=== PATIENT | male | born 1985 | race Caucasian/White ===

== ENCOUNTER 2021-07-17 18:58 | Outpatient (CLI) | payer OTHER, SELFPAY ==
--- NOTE | 2021-07-17 | DI.RAD_ITS ---
Exam(s) XR ANKLE RT COMPLETE EXAM: XR ANKLE RT COMPLETE CLINICAL HISTORY: sprain of deltoid ligament of right ankle, initial encounter. TECHNIQUE: 2D digital imaging was performed of the right ankle. Three images were obtained. AP, la teral and oblique views were obtained. COMPARISON: No exams were available for comparison FINDINGS: BONES: On the lateral view there is a question of cortical disruption at the posterior metaphysis of the distal tibia. There is a question that this may also be artifact from the super imposition of th e tibia and fibula. No other suggestion of a fracture is seen. No bony destructive lesion is seen. JOINTS: The ankle mortise is normally aligned. SOFT TISSUE: Normal. IMPRESSION: Nondisplaced fracture of the posterior tibial metaphysis versus artifact from superimposition of stru ctures on the lateral view. DATA REPOSITORY: RADIATION DOSE DELIVERED:
--- NOTE | 2021-07-17 19:25 | DI.VRAD_ITS ---
PROCEDURE INFORMATION: Exam: XR Right Ankle Exam date and time: 07/17/2021 7:03 PM Age: 36 years old Clinical indication: Patient HX: Sprain of deltoid ligament of right ankle, injury today 07/17/2021, not able to bear weight TECHNIQUE: Imaging protocol: XR Right ankle. Views: 3 or more views. COMPARISON: No relevant prior studies available. FINDINGS: Bones/joints: Subtle linear lucency with cortical discontinuity in the posterior tibial metaphysis, questionable for a minimally displaced fracture versus artifact from superimposition of structures. No other acutely displaced fractures are identified. There is no evidence of joint dislocation. No aggressive osseous lesions. Soft tissues: There is soft tissue swelling. IMPRESSION: Findings in the posterior tibial metaphysis questionable for a minimally displaced fracture versus artifact from superimposition of structures. Dictated and Authenticated by: Jose Nichols MD. Ordering:KARLIE Tracy MD
== END 2021-07-17 19:18 ==
PROVIDERS: Visit Provider Family Medicine
DX: S93.421A Sprain of deltoid ligament of right ankle, initial encounter (principal); X58.XXXA Exposure to other specified factors, initial encounter; M85.871 Other specified disorders of bone density and structure, right ankle and foot
CPT/HCPCS: 73610

== ENCOUNTER 2021-07-27 11:22 | Outpatient (CLI) | payer OTHER, SELFPAY ==
--- NOTE | 2021-07-27 09:45 | DI.RAD_ITS ---
Exam(s) XR ANKLE RT COMPLETE EXAM: XR ANKLE RT COMPLETE CLINICAL HISTORY: Ankle pain TECHNIQUE: 2D digital imaging was performed. COMPARISON: CR,XR XR ANKLE RT COMPLETE from 07/17/2021 FINDINGS: There is no evidence of fracture or widening of the mortise. On the present study the posterior mall eolus appears unremarkable. This was suspect on the lateral view of the prior study. The medial and lateral malleoli also appear unremarkable as does the talar dome. There is no osseous tarsal coalit ion evident. IMPRESSION: No fracture evident. DATA REPOSITORY: RADIATION DOSE DELIVERED:
== END 2021-07-27 11:23 | disposition home or self-care (01) ==
LOC: DIORS 11:23
PROVIDERS: Visit Provider Physician Assistant Surgical
DX: M25.571 Pain in right ankle and joints of right foot (principal); M85.871 Other specified disorders of bone density and structure, right ankle and foot
CPT/HCPCS: 73610

== ENCOUNTER 2022-10-11 17:36 | Outpatient (REF) | payer OTHER, SELFPAY ==
[2022-10-11 19:10] LABS: Anion Gap 9.2 mmol/L (3-11); BUN 13 mg/dL (7-18); CO2 26.8 mmol/L (21.0-32.0); Calcium 8.9 mg/dL (8.5-10.1); Calculated LDL 139 mg/dL (<100); Chloride 105 mmol/L (98-107); Cholesterol 241 mg/dL (<200); Estimated GFR 100.66 (mL/min/1.73m2); Glucose 87 mg/dL (74-106); HDL Cholesterol 40 mg/dL (40-60); Potassium 4.3 mmol/L (3.5-5.1); Sodium 141 mmol/L (136-145); Triglyceride 312 mg/dL (<150)
== END 2022-10-11 17:37 | disposition home or self-care (01) ==
LOC: NCHCN 17:36
PROVIDERS: Visit Provider Nurse Practitioner Family
DX: Z00.00 Encounter for general adult medical examination without abnormal findings (principal); Z13.220 Encounter for screening for lipoid disorders; Z13.1 Encounter for screening for diabetes mellitus; Z86.79 Personal history of other diseases of the circulatory system
CPT/HCPCS: 80048; 80061